=== PATIENT | female | born 1955 | race Two or more races ===

== ENCOUNTER 2022-06-17 18:56 | Emergency (ER) | payer BC, MEDICAID ==
[~2022-06-17] VITALS: Ht 170.2 cm; Wt 54.5 kg
[2022-06-17 19:27] VITALS: BP 128/70
== END 2022-06-18 03:39 | disposition left against medical advice (07) ==
LOC: ER 18:58
DX: R25.1 Tremor, unspecified (principal); M54.9 Dorsalgia, unspecified; Z53.21 Procedure and treatment not carried out due to patient leaving prior to being seen by health care provider

== ENCOUNTER 2022-06-25 15:07 | Emergency (ER) | payer BC, MEDICAID ==
[~2022-06-25] VITALS: Ht 172.7 cm; Wt 62.3 kg
[2022-06-25] MEDS ORDERED: ketorolac trometh. 30mg/ml inj. IM ONE (19:10)
[2022-06-25] MEDS ORDERED: ketorolac trometh inj. 60 MG/2 ML VIAL IM ONE (19:10)
[2022-06-25] MEDS ORDERED: orphenadrine citrate 60mg/2ml inj. IM ONE (19:10)
[2022-06-25] MEDS ORDERED: HYDROcodone/acetaminophen 5mg/325mg tablet PO ONE ×2 (19:25→19:40)
--- NOTE | 2022-06-25 19:41 | NUR ---
[place] 5 mg dropped on the floor by pt. Medication wasted, witnessed by Sushma ALDRICH. Medication reordered.
--- NOTE | 2022-06-25 20:10 | NUR ---
Call to virtual radiology to inquire about xray read. No eta provided.
[2022-06-25 21:36] VITALS: BP 155/83
[2022-06-25] MEDS ORDERED: LIDO700A32 TOP (21:38)
== END 2022-06-25 22:03 | disposition home or self-care (01) ==
LOC: ER 15:08
DX: M54.50 Low back pain, unspecified (principal); G89.29 Other chronic pain
CPT/HCPCS: 72100; 96372; 99284; J2360